=== PATIENT | male | born 1980 | race Caucasian/White ===

== ENCOUNTER 2020-09-20 18:05 | Emergency (ER) | payer SELFPAY ==
[~2020-09-20] VITALS: Ht 170.2 cm; Wt 69.4 kg
[2020-09-20 18:47] VITALS: BP 135/83; Ht 170.2 cm; Wt 69.4 kg
== END 2020-09-20 22:36 | disposition home or self-care (01) ==
LOC: ED 18:05
DX: S61.212A Laceration without foreign body of right middle finger without damage to nail, initial encounter (principal); W23.0XXA Caught, crushed, jammed, or pinched between moving objects, initial encounter; Y93.89 Activity, other specified; Y92.89 Other specified places as the place of occurrence of the external cause; Y99.8 Other external cause status
CPT/HCPCS: 90715; A4570; J0690; J2001